=== PATIENT | female | born 1985 | race Caucasian/White ===

== ENCOUNTER 2017-05-13 09:51 | Emergency (ER) | payer OTHER ==
[2017-05-13 10:06] VITALS: BP 135/71; PULSE 74; RESP 18; TEMP 97.9; O2SAT 98
[2017-05-13] MEDS ORDERED: FAMOTIDINE 20 MG TAB PO ONE (10:10)
[2017-05-13] MEDS ORDERED: IBUPROFEN 600 MG TAB PO ONE (10:10)
[2017-05-13] MEDS ORDERED: diphenhydrAMINE 25 MG CAP PO ONE (10:10)
--- NOTE | 2017-05-13 10:16 | EDPHY ---
H & P Time Seen by Provider: 05/13/17 10:00 HPI/ROS: HPI Bee sting on her left eye. 32-year-old female by private vehicle. She was outside. She was stung by a bee underneath her left eye on the upper maxilla area. She comes in complaining of swelling and discomfort below the left eye and involving the left eye lower lid and left upper eyelid. She does not have a previous history of anaphylaxis to bee stings or other insect stings. No significant past medical history. She denies any change in vision. He states that the be did not sting her in her eye specifically. ROS: Constitutional: No fever, no chills. No weakness. Eyes: No discharge. No changes in vision. Skin: As above. Neurological: No headache. No focal weakness or altered sensation. Past medical history: No significant past medical history. She is on control. Social history: Nonsmoker. No alcohol. Physical Exam: General Appearance: Alert, no distress. This patient is responding to questions appropriately and in full sentences. This patient appears well- hydrated and well-nourished. Eyes: Pupils equal and round no pallor or injection. No lid edema, erythema or injection. Examination of the left eye; She has diffuse swelling involving the left upper maxilla soft tissue extending into the left lower lid and to some extent but lesser the left upper eyelid. The cornea is clear. There is no injection or erythema involving the eyelid margins. The sclera is clear and without evidence of inflammation, erythema or edema. No infraorbital paresthesia. No diplopia on upward gaze. No pain with extraocular movements. ENT, Mouth: Mucous membranes are moist. The pharyngeal tissues are unremarkable. No edema or swelling. No asymmetry suggestive of abscess. No erythema or exudates. Respiratory: There are no retractions, lungs are clear to auscultation with good air movement bilaterally. Neurological: Motor sensory function is grossly intact. Cranial nerves are normal. Gait is normal. Skin: Warm and dry, no rashes. Musculoskeletal: Neck is supple and nontender. Extremities are symmetrical. All joints range without pain or impingement. Psychiatric: No agitation. No depression. Database: EKG: Imaging: Procedures: Emergency department course: Vital signs reviewed. She is afebrile. Vital signs are otherwise unremarkable. She does not show signs of anaphylaxis. She was given 40 mg of oral Pepcid in the emergency department with 50 mg of oral Benadryl and 600 mg of ibuprofen. Plan will be to prescribe her these medications over the next 3 days. I discussed infection precautions with her. She will follow up with her primary care physician at [facility] in 2 days for a recheck. Return to emergency department precautions were thoroughly reviewed with her. She feels comfortable going home. All of her questions were answered. She was discharged in good condition. Differential Diagnosis: The differential diagnosis on this patient includes but is not limited to be staying to left face, eyelid swelling. Intra-ocular insect sting, corneal abrasion, periorbital cellulitis, orbital cellulitis, anaphylaxis unlikely. This represents a partial list of diagnoses considered. These considerations are based on history, physical exam, past history, reassessment and diagnostic testing. Smoking Status: Never smoked Constitutional: Initial Vital Signs Temperature (C) 36.6 C 05/13/17 10:04 Heart Rate 74 05/13/17 10:04 Respiratory Rate 18 05/13/17 10:04 Blood Pressure 135/71 H 05/13/17 10:04 O2 Sat (%) 98 05/13/17 10:04 O2 Delivery Mode Room Air Allergies/Adverse Reactions: spironolactone Allergy (Severe, Verified 05/13/17 10:03) Other-Enter Comments Home Medications: Medication Instructions Recorded Bcp 05/13/17 Departure - Departure Disposition: Home, Routine, Self-Care Clinical Impression: Bee sting Condition: Good Instructions: Insect Bite or Sting (ED) Additional Instructions: Read and follow provided instructions. Follow-up with your primary care physician in 1-2 days for re-evaluation as discussed. Ibuprofen dosin mg every 6 hours with meals for the next 3 days only. Benadryl dosin mg every 6-8 hours for the next 2-3 days. This medication will make you drowsy. Pepcid dosin mg twice daily for the next 2-3 days. These are all [id number] medications. pick these medications up your local pharmacy after discharge. Return to the emergency department for worsening symptoms, fever, worsening swelling, changes in vision, shortness of breath, sensation of swelling in her throat or other serious concerns. Referrals: NONE *PRIMARY CARE P,. [Primary Care Provider] - As per Instructions
== END 2017-05-13 10:30 | disposition home or self-care (01) ==
LOC: CED 09:51
DX: T63.441A Toxic effect of venom of bees, accidental (unintentional), initial encounter (principal)